=== PATIENT | female | born 1995 | race Asian ===

== ENCOUNTER 2024-02-21 19:39 | Emergency (ER) | payer MEDICAID ==
[~2024-02-21] VITALS: Ht 157.5 cm; Wt 61.8 kg
[2024-02-22] MEDS ORDERED: CEPH-558 PO (00:58)
[2024-02-22] MEDS ORDERED: SULF-261 PO (00:58)
[2024-02-22] MEDS ORDERED: ACET-3385 PO (00:58)
[2024-02-22 00:59] VITALS: BP 114/71; PULSE 93; RESP 14; TEMP 98.9; O2SAT 99
[2024-02-22] MEDS: SULFAMETHOX/TRIMETH DS 800-160 MG/TABLET PO ONE (01:04)
[2024-02-22] MEDS: CEPHALEXIN MONOHYDRATE 500 MG CAPSULE PO ONE (01:04)
== END 2024-02-22 01:07 | disposition home or self-care (01) ==
LOC: EMS 19:42
DX: L03.116 Cellulitis of left lower limb (principal); L03.115 Cellulitis of right lower limb; R50.9 Fever, unspecified
CPT/HCPCS: 99283